=== PATIENT | female | born 1950 | race Hispanic/Latino ===

== ENCOUNTER → 2023-09-18 | Outpatient (CLI) | payer OTHER ==
[~2023-09-18] MED LIST: ALEN70TA80 PO; ASPI-1443 PO; CALC1TAB2 PO; CEFI200S PO; CHOL200016 PO; CLOP-31 PO; FISH1CAP27 PO; INSU100I3 SQ; INSU3INS3 SQ; LETR2.5T7 PO; PANT40TA PO; SIMV-43 PO; [UNRECOGNIZED DRUG - OTHER]; bedside commode
== END | disposition home or self-care (01) ==
LOC: RAH 10:52
PROVIDERS: ATTEND Internal Medicine
DX: R10.9 Unspecified abdominal pain (principal)
CPT/HCPCS: 76700